=== PATIENT | male | born 1960 | race Two or more races ===

== ENCOUNTER → 2021-12-11 | Outpatient (REF) | LOC: M PLAIMG 09:48 | PROVIDERS: ATTEND Internal Medicine | DX: Z00.00 Encounter for general adult medical examination without abnormal findings (principal) ==

== ENCOUNTER → 2022-07-22 | Outpatient (CLI) | payer OTHER ==
[~2022-07-22] MED LIST: AMLO1TAB25 PO; ATOR80TA59 PO; FAMO40TA3 PO; FERROCITE PO; GABA-282 PO; HYDR-3363 PO; HYDR-3713 PO; SILD100T7 PO
[2022-07-22 14:21] LABS: BASO # 0.1 10^3/uL (0.0-0.2); BASO % 0.6 % (0.0-1.0); EOS # 0.3 10^3/uL (0.0-0.5); HEMATOCRIT 40.7 % (42.0-52.0); HEMOGLOBIN 12.7 g/dl (13.5-17.5); LYMPH # 3.1 10^3/uL (1.5-5.0); LYMPH % 32.8 % (24.0-44.0); MEAN CORPUSCULAR HEMOGLOBIN 25.7 pg (27.0-33.0); MEAN CORPUSCULAR HGB CONC 31.2 g/dl (32.0-36.5); MEAN CORPUSCULAR VOLUME 82.2 fl (80.0-96.0); MONO # 0.9 10^3/uL (0.0-0.8); MONO % 9.7 % (2.0-8.0); NEUTROPHILS % 53.6 % (36.0-66.0); PLATELET COUNT, AUTOMATED 565 10^3/uL (150-450); RED BLOOD COUNT 4.95 10^6/uL (4.30-6.10); WHITE BLOOD COUNT 9.4 10^3/uL (4.0-10.0)
[2022-07-22 14:51] LABS: ALKALINE PHOSPHATASE 82 U/L (46-116); ALT/SGPT 45 U/L (7.0-40); AST/SGOT 37 U/L (<34); BILIRUBIN,TOTAL 0.4 MG/DL (0.3-1.2); BLOOD UREA NITROGEN 14 MG/DL (9-23); CALCIUM LEVEL 9.8 MG/DL (8.3-10.6); CARBON DIOXIDE LEVEL 25 MMOL/L (20-31); CHLORIDE LEVEL 104 MMOL/L (98-107); CREATININE FOR GFR 0.92 MG/DL (0.70-1.30); GLOMERULAR FILTRATION RATE > 60.0 (>49); GLUCOSE, FASTING 88 MG/DL (74-106); POTASSIUM SERUM 4.4 MMOL/L (3.5-5.1); PROSTATIC SPECIFIC AG MONITOR 2.01 NG/ML (< 4.00); SODIUM LEVEL 137 MMOL/L (136-145); TESTOSTERONE 192 NG/DL (241-827)
== END ==
LOC: M ONCR 12:36
PROVIDERS: ATTEND General Practice
DX: C61 Malignant neoplasm of prostate (principal); I10 Essential (primary) hypertension; E78.5 Hyperlipidemia, unspecified; Z79.818 Long term (current) use of other agents affecting estrogen receptors and estrogen levels; Z92.3 Personal history of irradiation
CPT/HCPCS: 36415; 80053; 84153; 84403; 85025; G0463

== ENCOUNTER → 2022-08-05 | Outpatient (CLI) | payer OTHER | LOC: M ONCR 12:52 | PROVIDERS: ATTEND General Practice | DX: C61 Malignant neoplasm of prostate (principal) ==

== ENCOUNTER 2022-12-16 08:25 | Day surgery (SDC) | payer OTHER ==
[~2022-12-16] VITALS: Ht 172.7 cm; Wt 67.5 kg
[~2022-12-16 08:25] MED LIST changes: +NS 1,000 ML IV ONE; +fentaNYL 100 MCG/2 ML INJECTION As Ordered ONE; +propofoL 200 MG/20 ML VIAL As Ordered ONE
[2022-12-16] MEDS ORDERED: propofoL 200 MG/20 ML VIAL As Ordered ONE (10:07)
[2022-12-16 10:34] VITALS: TEMP 97.7
[2022-12-16 11:02] VITALS: BP 174/83; O2SAT 100
== END 2022-12-16 11:16 | disposition home or self-care (01) ==
LOC: M OPP 08:25
PROVIDERS: ATTEND Internal Medicine Gastroenterology
DX: Z12.11 Encounter for screening for malignant neoplasm of colon (principal); D12.6 Benign neoplasm of colon, unspecified; K64.4 Residual hemorrhoidal skin tags; K64.8 Other hemorrhoids; K57.30 Diverticulosis of large intestine without perforation or abscess without bleeding; K21.00 Gastro-esophageal reflux disease with esophagitis, without bleeding; K29.70 Gastritis, unspecified, without bleeding; Z79.02 Long term (current) use of antithrombotics/antiplatelets; Z79.891 Long term (current) use of opiate analgesic; Z79.899 Other long term (current) drug therapy
CPT/HCPCS: 43239; 45385; 88305; J3010

== ENCOUNTER → 2022-12-16 | Outpatient (CLI) | payer OTHER ==
[~2022-12-16] MED LIST changes: +ATOR40TA75 PO; +EQL50TAB2 PO; +FERRTAB6 PO; +GABA600T4 PO; +OMEP40CA5 PO; +TRAZ-252 PO; +VENL75CA47 PO; +VITA100093 PO
[2022-12-16 09:45] LABS: PROSTATIC SPECIFIC AG MONITOR 0.22 NG/ML (< 4.00)
== END ==
LOC: M ONCR 07:51
PROVIDERS: ATTEND General Practice
DX: C61 Malignant neoplasm of prostate (principal); Z92.3 Personal history of irradiation; Z71.2 Person consulting for explanation of examination or test findings; Z79.899 Other long term (current) drug therapy; Z87.891 Personal history of nicotine dependence
CPT/HCPCS: 36415; 84153; 84403; G0463

== ENCOUNTER → 2023-03-18 | Outpatient (CLI) | payer OTHER ==
[~2023-03-18] MED LIST changes: -NS 1,000 ML IV ONE; -fentaNYL 100 MCG/2 ML INJECTION As Ordered ONE; -propofoL 200 MG/20 ML VIAL As Ordered ONE
[2023-03-18 12:11] LABS: PROSTATIC SPECIFIC AG MONITOR 3.61 NG/ML (< 4.00)
== END ==
LOC: M ONCR 10:29
PROVIDERS: ATTEND General Practice
DX: C61 Malignant neoplasm of prostate (principal); Z71.2 Person consulting for explanation of examination or test findings; Z79.899 Other long term (current) drug therapy; Z87.891 Personal history of nicotine dependence; Z92.3 Personal history of irradiation; Z92.29 Personal history of other drug therapy
CPT/HCPCS: 36415; 84153; 84403; G0463

== ENCOUNTER → 2023-04-20 | Outpatient (CLI) | payer OTHER ==
[~2023-04-20] MED LIST changes: +PROHANCE 279.3MG/ML 15ML VIAL As Ordered ONE
== END ==
LOC: M RAD 10:33
PROVIDERS: ATTEND General Practice
DX: C61 Malignant neoplasm of prostate (principal)
CPT/HCPCS: 72197; A9576

== ENCOUNTER → 2024-03-16 | Outpatient (CLI) | payer OTHER ==
[~2024-03-16] MED LIST changes: +ASPI81CH33 PO; +ASPI81TA26 PO; +GABA-1172 PO; +GABA-1490 PO; -GABA-282 PO; -GABA600T4 PO; -PROHANCE 279.3MG/ML 15ML VIAL As Ordered ONE; +SOLI5TAB PO; +TADA5TAB PO; +TAMS1CAP17 PO
== END ==
LOC: M RAD 08:58
PROVIDERS: ATTEND Internal Medicine Medical Oncology
DX: C61 Malignant neoplasm of prostate (principal)

== ENCOUNTER → 2024-03-22 | Outpatient (CLI) | payer OTHER ==
[~2024-03-22] MED LIST changes: +LIDOCAINE 1% MDV 20ML VIAL As Ordered ONE
[2024-03-22 08:02] VITALS: TEMP 97.9
[2024-03-22 08:36] LABS: BASO # 0.1 10^3/uL (0.0-0.2); BASO % 0.7 % (0.0-1.0); EOS # 0.3 10^3/uL (0.0-0.5); EOS % 4.9 % (0.0-3.0); HEMATOCRIT 44.5 % (42.0-52.0); HEMOGLOBIN 14.3 g/dl (13.5-17.5); LYMPH % 29.5 % (24.0-44.0); MEAN CORPUSCULAR HEMOGLOBIN 25.4 pg (27.0-33.0); MEAN CORPUSCULAR HGB CONC 32.1 g/dl (32.0-36.5); MEAN CORPUSCULAR VOLUME 78.9 fl (80.0-96.0); MONO # 0.6 10^3/uL (0.0-0.8); MONO % 8.2 % (2.0-8.0); NEUTROPHILS # 3.8 10^3/uL (1.5-8.5); NEUTROPHILS % 56.1 % (36.0-66.0); PLATELET COUNT, AUTOMATED 692 10^3/uL (150-450); RED BLOOD COUNT 5.64 10^6/uL (4.30-6.10); WHITE BLOOD COUNT 6.7 10^3/uL (4.0-10.0)
[2024-03-22 09:21] VITALS: BP 151/75; O2SAT 100
== END ==
LOC: M IRPRO 07:41
PROVIDERS: ATTEND Internal Medicine Medical Oncology
DX: C61 Malignant neoplasm of prostate (principal); D49.3 Neoplasm of unspecified behavior of breast

== ENCOUNTER → 2024-04-26 | Outpatient (REF) | payer OTHER ==
[~2024-04-26] MED LIST changes: +HYDR500C3 PO; -LIDOCAINE 1% MDV 20ML VIAL As Ordered ONE; -TADA5TAB PO; +TADA5TAB94 PO
== END ==
LOC: M LAB REF 10:33
PROVIDERS: ATTEND Physician Assistant Medical
DX: C61 Malignant neoplasm of prostate (principal)

== ENCOUNTER → 2025-04-07 | Outpatient (CLI) | payer OTHER ==
[~2025-04-07] MED LIST changes: -EQL50TAB2 PO; +FENT1DIS14 TOP; +FERR325T3 PO; +OLAN1TAB16 PO; +TADA5TAB2 PO; -TADA5TAB94 PO; +VITA1TAB82 PO
== END ==
LOC: M ONCR 10:50
PROVIDERS: ATTEND General Practice
DX: C61 Malignant neoplasm of prostate (principal); Z92.3 Personal history of irradiation; Z87.891 Personal history of nicotine dependence; Z79.82 Long term (current) use of aspirin; Z79.899 Other long term (current) drug therapy